=== PATIENT | female | born 1985 | race Caucasian/White ===

== ENCOUNTER 2017-02-25 07:14 | Emergency (ER) | payer OTHER ==
[2017-02-25 07:26] VITALS: BP 128/87
--- NOTE | 2017-02-25 08:18 | UC ---
Ear Complaint HPI - HPI Summary HPI Summary: 31 yo female with right ear pain on and off for 2 weeks no URI symptoms has been swimming a lot she is 39 wks - History of Current Complaint Chief Complaint: UCEar Stated Complaint: EAR PAIN Time Seen by Provider: 02/25/17 07:42 Hx Obtained From: Patient Hx Last Menstrual Period: about 5 weeks ago Onset/Duration: Gradual Onset, Lasting Minutes - on and off pain Severity Initially: Moderate Severity Currently: None Pain Intensity: 0 Pain Scale Used: 0-10 Numeric Alleviating Factors: Other (Noted In Comments) - positional at times - Allergies/Home Medications Allergies/Adverse Reactions: Allergies Allergy/AdvReac Type Severity Reaction Status Date / Time Penicillins Allergy Unknown Unknown Verified 02/25/17 07:27 Reaction Details Home Medications: Home Medications Cholecalciferol [Vitamin D-3] 4,000 units PO DAILY 02/25/17 [History Confirmed 02/25/17] Docosahexaenoic Acid [ Dha] 1 tab PO DAILY 02/25/17 [History Confirmed 02/25/17] PMH/Surg Hx/FS Hx/Imm Hx Previously Healthy: Yes Endocrine History Of: Denies: Diabetes, Thyroid Disease Cardiovascular History Of: Denies: Cardiac Disorders, Hypertension Respiratory History Of: Denies: COPD, Asthma GI/ History Of: Denies: Ulcer - Surgical History Surgical History: Yes Surgery Procedure, Year, and Place: deviated septum. hemorrhoidectomy - Family History Known Family History: Positive: Hypertension - Social History Alcohol Use: None Substance Use Type: None, Marijuana Substance Use Comment - Amount & Last Used: every other day Smoking Status (MU): Former Smoker Review of Systems Constitutional: Negative Skin: Negative Eyes: Negative ENT: Ear Ache Respiratory: Negative Cardiovascular: Negative Gastrointestinal: Negative Genitourinary: Negative Motor: Negative Neurovascular: Negative Musculoskeletal: Negative Neurological: Negative Psychological: Negative All Other Systems Reviewed And Are Negative: Yes Physical Exam Triage Information Reviewed: Yes Appearance: Well-Appearing, No Pain Distress, Well-Nourished Vital Signs: Initial Vital Signs Temp 98.0 F 02/25/17 07:20 Pulse 68 02/25/17 07:20 Resp 16 02/25/17 07:20 BP 128/87 02/25/17 07:20 Pulse Ox 98 02/25/17 07:20 Vital Signs Reviewed: Yes Eyes: Positive: Conjunctiva Clear ENT: Positive: Pharynx normal, TMs normal - left normal, right is retracted. Negative: Hearing grossly normal - decreased hearing right, Tonsillar swelling, Tonsillar exudate, Trismus, Muffled/hoarse voice Dental: Negative: Dental Fracture @ Neck: Positive: Supple, Nontender Respiratory: Positive: Lungs clear, Normal breath sounds, No respiratory distress, No accessory muscle use Cardiovascular: Positive: RRR, No Murmur Abdomen Description: Positive: Other: - gravid uterus Musculoskeletal: Positive: Strength Intact Neurological: Positive: Alert Psychological Exam: Normal Skin Exam: Normal Ear Complaint Course/Dx - Differential Dx/Diagnosis Provider Diagnoses: right serous otitis media Discharge - Discharge Plan Condition: Stable Disposition: HOME Prescriptions: Fluticasone NASAL SPRAY 50MCG* [Flonase NASAL SPRAY 50MCG*] 2 spray BOTH NARES DAILY #1 btl Patient Education Materials: Serous Otitis Media (ED) Referrals: No Primary Care Phys,NOPCP [Primary Care Provider] - Additional Instructions: recheck for new or worsening symptoms or if not better in 2-3 weeks
== END 2017-02-25 07:54 | disposition home or self-care (01) ==
LOC: UCEAST 07:14
DX: O26.893 Other specified pregnancy related conditions, third trimester (principal); H65.91 Unspecified nonsuppurative otitis media, right ear; F12.90 Cannabis use, unspecified, uncomplicated; Z87.891 Personal history of nicotine dependence; Z3A.39 39 weeks gestation of pregnancy
CPT/HCPCS: 99212; G0463